=== PATIENT | male | born 1970 ===

== ENCOUNTER 2025-07-30 12:00 | Day surgery (SDC) | payer OTHER ==
[2025-07-30] MEDS ORDERED: fentaNYL CITRATE 50 MCG/ML AMPUL IV PUSH ONE (17:30)
[2025-07-30] MEDS ORDERED: DIPHENHYDRAMINE HCL 50 MG/ML VIAL 1ML IV ONE (17:30)
[2025-07-30] MEDS ORDERED: MIDAZOLAM HCL 2 MG/2 ML VIAL IV ONE (17:30)
== END 2025-07-30 18:50 | disposition home or self-care (01) ==
LOC: AMB-ENDOS 12:00
PROVIDERS: ATTEND Internal Medicine
DX: D12.3 Benign neoplasm of transverse colon (principal); K63.5 Polyp of colon